=== PATIENT | male | born 2000 | race Caucasian/White ===

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

== ENCOUNTER 2023-11-22 14:42 | Emergency (ER) | payer SELFPAY | END 2023-11-22 16:28 | disposition home or self-care (01) | LOC: BURERS 14:42 | DX: S93.401A Sprain of unspecified ligament of right ankle, initial encounter (principal); X50.1XXA Overexertion from prolonged static or awkward postures, initial encounter ==